=== PATIENT | male | born 1990 | race Caucasian/White ===

== ENCOUNTER 2017-08-13 18:59 | Emergency (ER) | payer OTHER ==
[2017-08-13] MEDS: IV NORMAL SALINE 1000ML BAG 1,000 ML IV ×2 (19:59)
[2017-08-13 21:25] LABS: AGAP ISTAT 12 mmol/L (6-14); BUN ISTAT 15 mg/dL (8-26); CHLORIDE ISTAT 102 mmol/L (98-110); GLUCOSE ISTAT 79 mg/dL (70-99); HEMATOCRIT ISTAT 46 % (37-52); HEMOGLOBIN ISTAT 15.6 g/dL (14-18); ION CA ISTAT 1.14 mmol/L (1.13-1.32); POTASSIUM ISTAT 4.1 mmol/L (3.5-5.0); SODIUM ISTAT 140 mmol/L (135-145); TOT CO2 ISTAT 31 mmol/L (23-32)
== END 2017-08-13 21:27 | disposition home or self-care (01) ==
LOC: ER 18:59
DX: R51 Headache (principal); R42 Dizziness and giddiness; E66.01 Morbid (severe) obesity due to excess calories; F41.9 Anxiety disorder, unspecified; G89.29 Other chronic pain; Z68.42 Body mass index [BMI] 45.0-49.9, adult
CPT/HCPCS: 36415; 70450; 80047; 85014; 85018; 93005; 96360; 99284-25; J7030